=== PATIENT | female | born 1960 | race Caucasian/White ===

== ENCOUNTER → 2019-06-04 15:04 | Outpatient (POV) | payer BC, SELFPAY | DX: Z00.00 Encounter for general adult medical examination without abnormal findings (principal) ==

== ENCOUNTER → 2020-05-04 15:17 | Outpatient (CLI) | payer BC, SELFPAY ==
--- NOTE | 2020-05-04 15:26 | XR_ITS ---
PROCEDURE: XR SHOULDER RT MIN 2V CLINICAL INDICATION: RT SHOULDER PAIN COMPARISON: No exams were available for comparison FINDINGS: Osteoarthritic change at the acromioclavicular joint and glenohumeral joint. There is mild spurring along the inferior surface of the acromion with mild subacromial stenosis. Other findings:None. IMPRESSION: Osteoarthritic change with subacromial stenosis Dictated by: Dennis Almeida MD 05/04/2020 15:42 Dennis Almeida MD in [facility] 05/04/2020 15:42
== END ==
PROVIDERS: PCP Internal Medicine; Visit Provider Internal Medicine
DX: M25.511 Pain in right shoulder (principal)
CPT/HCPCS: 73030

== ENCOUNTER → 2020-05-24 13:54 | Outpatient (CLI) | payer BC, SELFPAY ==
--- NOTE | 2020-05-24 14:07 | CT_ITS ---
PROCEDURE: CT SHOULDER RT WO CON CLINICAL HISTORY: RT SHOULDER PAIN, injury to rt shoulder c/o pain COMPARISON: CR XR SHOULDER RT MIN 2V from 05/04/2020 TECHNIQUE: Axial images obtained with sagittal and coronal reformats. All CT scans at the facility use one or more dose reduction, viz: automated exposure control, ma/kV adjustment per patient size (including targeted exams where dose is matched to indication, i.e. head), or iterative reconstruction technique. FINDINGS: No acute fracture or dislocation is. There are mild osteoarthritic changes at the acromioclavicular joint. The glenohumeral joint has an unremarkable appearance. No soft tissue mass or large effusion evident. Incidental note is made of some small subpleural blebs in the lung apex IMPRESSION: Osteoarthritic change of the acromioclavicular joint otherwise negative CT of the right shoulder. No acute fracture. Dictated by: Dennis Almeida MD 05/26/2020 12:31 Dennis Almeida MD in [facility] 05/26/2020 12:31
== END ==
PROVIDERS: PCP Internal Medicine; Visit Provider Internal Medicine
DX: M25.511 Pain in right shoulder (principal); S46.001A Unspecified injury of muscle(s) and tendon(s) of the rotator cuff of right shoulder, initial encounter
CPT/HCPCS: 73200

== ENCOUNTER → 2021-03-14 14:38 | Outpatient (CLI) | payer BC, SELFPAY | PROVIDERS: Visit Provider Internal Medicine | DX: Z20.822 Contact with and (suspected) exposure to COVID-19 (principal); U07.1 COVID-19 | CPT/HCPCS: C9803; U0003; U0005 ==

== ENCOUNTER → 2021-04-29 16:06 | Outpatient (CLI) | payer BC, SELFPAY ==
--- NOTE | 2021-04-29 16:08 | XR_ITS ---
PROCEDURE: XR CHEST 2V CLINICAL HISTORY: covid COMPARISON: CT CTAC CTA-CHEST from 05/04/2016 CR CXR CHEST(2 VIEWS-NOT PORTABLE) from 05/04/2016 CR CXR2V XR chest 2V from 11/15/2017 FINDINGS: The cardiomediastinal silhouette and pulmonary vascularity are within normal limits. COPD changes. No areas of consolidation or effusion Mild thoracic scoliosis convex left IMPRESSION: COPD. No acute finding. Dictated by: Dennis Almeida MD 04/29/2021 16:28 Dennis Almeida MD in [facility] 04/29/2021 16:28
== END ==
PROVIDERS: PCP Emergency Medicine; Visit Provider Nurse Practitioner Family
DX: U07.1 COVID-19 (principal)
CPT/HCPCS: 71046

== ENCOUNTER → 2021-04-29 17:05 | Outpatient (CLI) | payer BC, SELFPAY ==
[2021-04-29 18:45] LABS: Basophils # 0.1 K/mm3 (0-0.2); Basophils % 0.9 % (0.1-2.0); Eosinophils # 0.2 K/mm3 (0.0-0.4); Hematocrit 39.9 % (37.0-47.0); Hemoglobin 13.3 g/dL (12.2-16.2); Lymphocytes # 3.5 K/mm3 (0.7-4.5); Lymphocytes % 33.9 % (10-50); Mean Corpuscular HGB Conc 33.4 g/dL (31.8-35.4); Mean Corpuscular Hemoglobin 30.5 pg (27.0-31.2); Mean Corpuscular Volume 91.4 fl (81-99); Mean Platelet Volume 8.9 fl (7.4-10.4); Monocytes # 0.4 K/mm3 (0.1-1.0); Monocytes % 4.3 % (1.7-9.3); Neutrophils % 58.8 % (37.0-80.0); Platelet Count 237 K/mm3 (142-424); Red Blood Count 4.37 M/mm3 (4.20-5.40); Red Cell Distribution Width 16.9 % (11.5-17.5); White Blood Count 10.2 K/mm3 (4.8-10.8)
[2021-04-29 18:50] LABS: Alanine Aminotransferase 91 U/L (12-78); Albumin Level 4.6 g/dl (3.5-5.0); Albumin/Globulin Ratio 1.6 (1.1-1.8); Alkaline Phosphatase 80 U/L (38-126); Anion Gap 7.1 mEq/L (5-15); Aspartate Amino Transferase 91 U/L (14-36); Bilirubin,Total 0.3 mg/dl (0.2-1.3); Blood Urea Nitrogen 16 mg/dl (7-17); Calcium 9.9 mg/dl (8.4-10.2); Carbon Dioxide 31 mmol/L (22.0-30.0); Chloride 101 mmol/L (98-107); Chol/HDL Ratio 4.2 (1-3.5); Cholesterol 269 mg/dl (140-200); Estimated Glomerular Filt Rate 51 ml/min (>60); GFR (African American) 61 ML/MIN (>60); Globulin 2.9 g/dL (1.3-3.2); Glucose 81 mg/dl (74-100); HDL Cholesterol 64 mg/dl (40-60); Potassium 4.1 mmoL/L (3.5-5.1); Sodium 135 mmol/L (136-145); Total Protein,Serum 7.5 g/dl (6.3-8.2); Triglycerides 182 mg/dl (30-150); VLDL Cholesterol 36 mg/dL (0-40)
[2021-04-29 19:02] LABS: Direct LDL Cholesterol 145.74 mg/dL (100-129)
[2021-04-29 19:09] LABS: 25-OH Vitamin D, Total 44.4 ng/mL (30-100)
[2021-04-29 19:10] LABS: T4 (Thyroxine) 0.6 ug/dl (5.53-11.0)
== END ==
PROVIDERS: Visit Provider Nurse Practitioner Family
DX: R00.2 Palpitations (principal); R53.83 Other fatigue
CPT/HCPCS: 80053; 80061; 82306; 84436; 84443; 85025

== ENCOUNTER → 2021-05-02 11:22 | Outpatient (CLI) | payer BC, SELFPAY | PROVIDERS: PCP Nurse Practitioner Family; Visit Provider Physician Assistant | DX: R00.2 Palpitations (principal) | CPT/HCPCS: 93270 ==

== ENCOUNTER → 2021-05-04 13:29 | Outpatient (CLI) | payer BC, SELFPAY ==
--- NOTE | 2021-05-04 13:29 | CA_ITS ---
APPROVED REPORT EXAM: Comprehensive 2D, Doppler, and color-flow Echocardiogram Proof Reader: Sunni Dwyer RDCS Ht: 5 ft 6 in Wt: 150lbs BSA: 1.77 BP: 121/69 mmHg Indications: PALPS,SMOKER,MIRELES,RECENT COVID 2D Dimensions LVOT 1.77 cm (M/F) 1.5-2.5 M-Mode Dimensions RVDd 1.20 cm (0.9-2.6) LA Diam 2.87 cm (1.9-4.0) LVDd 5.98 cm (3.5-5.7) Ao Diam 3.23 cm (2.0-3.7) LVDs 4.64 cm (3.5-5.7) IVSd 0.71 cm (0.6-1.1) PWd 0.76 cm (0.6-1.1) EF (Teich) 44.40% FS 22.40% EDV (Teich) 178.60 mL TAPSE 2.44 (<1.7) ESV (Teich) 99.30 mL LV Diastology E Decel Time 193.00 (160-240 msec) E/A Ratio 1.1 MED E' 3.90 (< 7 cm/sec) E'/MED E' Ratio 16.92 (>14) LAT E' 8.60 (<10 cm/sec) E/LAT E' Ratio 7.67 (>14) Mitral Valve MV E Max Billy. 66.00 (40-130 cm/s) MV A Velocity 59.00 (40-130 cm/s) E/A Ratio 1.12 MV Decel. Time 193.00 (160-240 ms) MV PHT 57.00 ms Left Ventricle Left atrium normal size, left ventricle is normal size, there is no concentric left ventricular hypertrophy, visually estimated ejection fraction 55% with no regional wall motion abnormality, diastolic parameters are inconclusive. Right Ventricle Right atrium and right ventricle are normal size and contractility. Aortic Valve Aortic valve is grossly normal, there is no aortic stenosis or aortic insufficiency. Mitral Valve Mitral valve grossly normal, there is trace mitral regurgitation. Tricuspid Valve Tricuspid grossly normal, there is trace tricuspid regurgitation, tricuspid regurgitation jet velocity is inadequate for calculation of the right ventricular systolic pressure. Pulmonic Valve Pulmonic valve is poorly visualized. Great Vessels Aortic root is normal size. Inferior vena cava is normal size with normal inspiratory collapse. Pericardium No significant pericardial effusion noted. Conclusion 1. Normal left ventricular size, preserved left ventricular systolic function, visually estimated ejection fraction 55% with no regional wall motion abnormality, diastolic parameters are within normal range. 2. Trace mitral and tricuspid regurgitation. 3. No significant pericardial effusion noted. 4. Inferior vena cava is normal size with normal inspiratory collapse. Electronically signed by : Phill Silva MD 05/04/2021 21:03:45
== END ==
PROVIDERS: PCP Nurse Practitioner Family; Visit Provider Physician Assistant
DX: R00.2 Palpitations (principal); R06.00 Dyspnea, unspecified; E03.9 Hypothyroidism, unspecified; R40.0 Somnolence
CPT/HCPCS: 93306

== ENCOUNTER → 2021-05-09 15:57 | Outpatient (CLI) | payer BC, SELFPAY ==
[2021-05-09 19:40] LABS: Hemoglobin A1C 5.6 % (4.0-6.0)
[2021-05-09 19:49] LABS: T4 (Thyroxine) 0.5 ug/dl (5.53-11.0)
== END ==
PROVIDERS: Visit Provider Nurse Practitioner Family
DX: E03.9 Hypothyroidism, unspecified (principal); R73.09 Other abnormal glucose
CPT/HCPCS: 36415; 83036; 84436; 84443

== ENCOUNTER → 2022-05-31 17:03 | Outpatient (CLI) | payer BC, SELFPAY ==
[2022-05-31 17:42] LABS: Basophils # 0.1 K/mm3 (0-0.2); Basophils % 1.1 % (0.1-2.0); Eosinophils # 0.2 K/mm3 (0.0-0.4); Eosinophils % 1.9 % (0.1-12.0); Hematocrit 42.2 % (37.0-47.0); Hemoglobin 13.4 g/dL (12.2-16.2); Lymphocytes # 3.2 K/mm3 (0.7-4.5); Mean Corpuscular HGB Conc 31.8 g/dL (31.8-35.4); Mean Corpuscular Hemoglobin 29.9 pg (27.0-31.2); Mean Corpuscular Volume 94.1 fl (81-99); Mean Platelet Volume 9.7 fl (7.4-10.4); Monocytes # 0.5 K/mm3 (0.1-1.0); Monocytes % 5.2 % (1.7-9.3); Neutrophils # 6.2 K/mm3 (1.8-7.8); Neutrophils % 60.7 % (37.0-80.0); Platelet Count 280 K/mm3 (142-424); Red Blood Count 4.48 M/mm3 (4.20-5.40); White Blood Count 10.2 K/mm3 (4.8-10.8)
[2022-05-31 17:51] LABS: Chloride 106 mmol/L (98-107); Sodium 141 mmol/L (136-145)
[2022-05-31 17:52] LABS: Potassium 4.4 mmoL/L (3.5-5.1)
[2022-05-31 17:54] LABS: Alanine Aminotransferase 13 U/L (12-78); Albumin Level 4.4 g/dl (3.5-5.0); Albumin/Globulin Ratio 1.5 (1.1-1.8); Alkaline Phosphatase 88 U/L (38-126); Anion Gap 13.4 mEq/L (5-15); Aspartate Amino Transferase 23 U/L (14-36); Bilirubin,Total 0.5 mg/dl (0.2-1.3); Blood Urea Nitrogen 15 mg/dl (7-17); Carbon Dioxide 26 mmol/L (22.0-30.0); Cholesterol 224 mg/dl (140-200); Estimated Glomerular Filt Rate 50 ml/min (>60); GFR (African American) 61 ML/MIN (>60); Globulin 2.9 g/dL (1.3-3.2); Total Protein,Serum 7.3 g/dl (6.3-8.2); Triglycerides 141 mg/dl (30-150); VLDL Cholesterol 28 mg/dL (0-40)
[2022-05-31 17:55] LABS: Calcium 8.8 mg/dl (8.4-10.2); Chol/HDL Ratio 4.6 (1-3.5); Glucose 76 mg/dl (74-100); HDL Cholesterol 49 mg/dl (40-60)
== END ==
PROVIDERS: PCP Internal Medicine; Visit Provider Internal Medicine
DX: R00.2 Palpitations (principal); I34.1 Nonrheumatic mitral (valve) prolapse; E03.9 Hypothyroidism, unspecified; E78.5 Hyperlipidemia, unspecified; E87.5 Hyperkalemia; K21.9 Gastro-esophageal reflux disease without esophagitis
CPT/HCPCS: 80053; 80061; 84443; 85025

== ENCOUNTER 2023-09-14 15:27 | Outpatient (CLI) | payer BC, SELFPAY ==
--- NOTE | 2023-09-14 15:35 | XR_ITS ---
FINAL REPORT TECHNIQUE: Chest PA & Lateral CLINICAL HISTORY: MIDBACK PAIN/SMOKER FINDINGS: 2 views of the chest were performed. The heart size is normal. The mediastinum is within normal limits. There is no acute cardiopulmonary process. There is scarring in the right suprahilar region. There are no pleural effusions. There is no pneumothorax. The bony thorax appears intact. IMPRESSION: No acute cardiopulmonary process. Reviewed, Interpreted and Dictated by Ji Gooden MD Transcribed by Marita Portillo Authenticated and [facility]
[2023-09-14 17:54] LABS: Basophils # 0.1 K/mm3 (0-0.2); Basophils % 0.8 % (0.1-2.0); Eosinophils # 0.2 K/mm3 (0.0-0.4); Eosinophils % 1.8 % (0.1-12.0); Hemoglobin 12.4 g/dL (12.2-16.2); Lymphocytes # 3.6 K/mm3 (0.7-4.5); Mean Corpuscular HGB Conc 32.6 g/dL (31.8-35.4); Mean Corpuscular Hemoglobin 29.9 pg (27.0-31.2); Mean Corpuscular Volume 91.8 fl (81-99); Monocytes # 0.5 K/mm3 (0.1-1.0); Monocytes % 4.4 % (1.7-9.3); Neutrophils # 7.2 K/mm3 (1.8-7.8); Neutrophils % 62.1 % (37.0-80.0); Platelet Count 259 K/mm3 (142-424); Red Blood Count 4.14 M/mm3 (4.20-5.40); White Blood Count 11.5 K/mm3 (4.8-10.8)
[2023-09-14 18:12] LABS: Alanine Aminotransferase 19 U/L (12-78); Albumin Level 4.2 g/dl (3.5-5.0); Albumin/Globulin Ratio 1.6 (1.1-1.8); Alkaline Phosphatase 76 U/L (38-126); Anion Gap 12.3 mEq/L (5-15); Aspartate Amino Transferase 28 U/L (14-36); Bilirubin,Total 0.4 mg/dl (0.2-1.3); Blood Urea Nitrogen 16 mg/dl (7-17); Calcium 9.9 mg/dl (8.4-10.2); Carbon Dioxide 27 mmol/L (22.0-30.0); Chloride 104 mmol/L (98-107); Estimated Glomerular Filt Rate 41 ml/min (>60); GFR (African American) 50 ML/MIN (>60); Globulin 2.7 g/dL (1.3-3.2); Glucose 89 mg/dl (74-100); Potassium 4.3 mmoL/L (3.5-5.1); Sodium 139 mmol/L (136-145); Total Protein,Serum 6.9 g/dl (6.3-8.2)
== END 2023-09-14 23:59 | disposition home or self-care (01) ==
PROVIDERS: PCP Internal Medicine; Visit Provider Internal Medicine
DX: M54.6 Pain in thoracic spine (principal); R53.83 Other fatigue; E03.9 Hypothyroidism, unspecified; F17.200 Nicotine dependence, unspecified, uncomplicated
CPT/HCPCS: 71046; 80053; 84443; 85025

== ENCOUNTER 2024-07-28 11:30 | Outpatient (CLI) | payer BC, SELFPAY ==
[2024-07-28 18:23] LABS: Albumin Level 4.3 g/dl (3.5-5.0); Sodium 140 mmol/L (136-145)
[2024-07-28 18:24] LABS: Potassium 4.5 mmoL/L (3.5-5.1)
[2024-07-28 18:25] LABS: Chloride 105 mmol/L (98-107)
[2024-07-28 18:26] LABS: Albumin/Globulin Ratio 1.9 (1.1-1.8); Alkaline Phosphatase 82 U/L (38-126); Anion Gap 11.5 mEq/L (5-15); Blood Urea Nitrogen 18 mg/dl (7-17); Carbon Dioxide 28 mmol/L (22.0-30.0); Estimated Glomerular Filt Rate 56 ml/min (>60); GFR (African American) 68 ML/MIN (>60); Globulin 2.3 g/dL (1.3-3.2); Total Protein,Serum 6.6 g/dl (6.3-8.2)
[2024-07-28 18:27] LABS: Calcium 9.1 mg/dl (8.4-10.2); Glucose 80 mg/dl (74-100); HDL Cholesterol 50 mg/dl (40-60)
[2024-07-28 18:28] LABS: Alanine Aminotransferase 14 U/L (12-78); Aspartate Amino Transferase 18 U/L (14-36); Chol/HDL Ratio 3.3 (1-3.5); Cholesterol 164 mg/dl (140-200); Triglycerides 126 mg/dl (30-150); VLDL Cholesterol 25 mg/dL (0-40)
[2024-07-28 18:36] LABS: Bilirubin,Total 0.1 mg/dl (0.2-1.3)
== END 2024-07-28 23:59 | disposition home or self-care (01) ==
LOC: LAB.DROPOF 07-29 09:16
PROVIDERS: PCP Internal Medicine; Visit Provider Internal Medicine
DX: E03.9 Hypothyroidism, unspecified (principal); E78.49 Other hyperlipidemia; R00.2 Palpitations
CPT/HCPCS: 80053; 80061; 84443

== ENCOUNTER 2025-01-12 16:30 | Outpatient (CLI) | payer BC, SELFPAY ==
[2025-01-12 20:43] LABS: Thyroid Stimulating Hormone 64.10 uIU/mL (0.465-4.68)
== END 2025-01-12 23:59 | disposition home or self-care (01) ==
LOC: LAB.DROPOF 01-14 11:38
PROVIDERS: PCP Internal Medicine; Visit Provider Internal Medicine
DX: E03.9 Hypothyroidism, unspecified (principal)
CPT/HCPCS: 84443